=== PATIENT | female | born 1935 | race Caucasian/White ===

== ENCOUNTER 2021-05-26 10:06 | Emergency (ER) | payer OTHER, SELFPAY ==
[2021-05-26 10:22] VITALS: BP 173/87; PULSE 95; RESP 18; TEMP 37.1; O2SAT 95
[2021-05-26 11:00] LABS: COVID19 -Nasal RAPID POSITIVE (Negative)
--- NOTE | 2021-05-26 11:05 | ED.GENADULT ---
HPI - General Adult General Chief complaint: Upper Respiratory Symptoms Stated complaint: cough, fever yesterday Time Seen by Provider: 05/26/21 10:34 Source: patient Mode of arrival: Family Vehicle Limitations: no limitations History of Present Illness HPI narrative: Patient is an 85-year-old female. She has been fully vaccinated against COVID-19 with the Pfizer vaccine. Her 2nd dose was in October this year. She states that approximately 1 week ago her started to have symptoms. He was also fully vaccinated. They both went and got tested. His test was positive. Her test was negative. She left the house to come to her local summer home. Yesterday she had some chills and a cough and a slight fever. Comes the emergency department today for COVID-19 testing. Related Data Allergies Allergy/AdvReac Type Severity Reaction Status Date / Time codeine Allergy Unknown Hives Verified 05/26/21 10:47 Penicillins Allergy Unknown Hives Verified 05/26/21 10:46 Review of Systems Constitutional Comments: Chills, fever Respiratory Comments: Cough but no shortness of breath Gastrointestinal Gastrointestinal: Denies nausea and Denies vomiting Integumentary/Breasts Skin/Breast: Reports system reviewed and no additional complaints, except as documented Neurologic Neurologic: Reports system reviewed and no additional complaints, except as documented Hematologic/Lymphatic On Anticoagulants: No Patient History Medical History Healthy adult Social History Smoking Status: Former smoker Smoking Status: Former smoker alcohol intake frequency: 0-2 drinks per day Substance Use Type: does not use Exam Initial Vital Signs Initial Vital Signs: Vital Signs Temperature 98.8 F 05/26/21 10:22 Pulse Rate 95 H 05/26/21 10:22 Respiratory Rate 18 05/26/21 10:22 Blood Pressure 173/87 H 05/26/21 10:22 Pulse Oximetry 95 05/26/21 10:22 Resp Effort & Inspection: normal respiratory effort Auscultation: clear to auscultation bilaterally Cardio Rate: regular rate Rhythm: regular rhythm Skin General: no rashes or lesions noted Neuro General: patient alert, patient awake and patient oriented x3 Extrem General: normal to inspection Course Orders Ordered: ED Orders 05/26/21 10:22 COVID19 -Nasal swab/Pre-Proc Stat Vital Signs Vital signs: Vital Signs - 8 hr 05/26/21 10:22 Temperature 98.8 F Pulse Rate 95 H Respiratory Rate 18 Blood Pressure 173/87 H Pulse Oximetry 95 Medical Decision Making Lab Data Lab results reviewed: Yes I reviewed the patient's lab results. Labs: Lab Results 05/26/21 Range/Units 10:22 SARS-CoV-2 (PCR) Positive H (Negative) MDM Narrative Medical decision making narrative: Patient's COVID test was positive. I did discuss this with her. No respiratory distress. Labs unremarkable. I did discuss with her about contacting her primary doctor to discuss the monoclonal antibody infusion. She was given return precautions. She expressed understanding and agreement. Discharge Plan Departure Patient Disposition: Home Clinical Impression: COVID-19 Instructions: DI for COVID-19 (Suspected or Confirmed ) Activity Restrictions/Additional Instructions: Your COVID test today is positive. Current guidelines state that you need to quarantine yourself for the next 10 days. Be fever free for 24 hours and the rest your symptoms need to be improving. I do recommend that you contact your primary doctor as you are eligible to receive the monoclonal antibody infusions. Return to the emergency department for any new or worsening symptoms.
== END 2021-05-26 11:17 | disposition home or self-care (01) ==
PROVIDERS: Emergency Provider Emergency Medicine
DX: U07.1 COVID-19 (principal); R50.9 Fever, unspecified
CPT/HCPCS: 87635; 99281; 99282; C9803